=== PATIENT | female | born 1995 ===

== ENCOUNTER → 2018-09-05 19:48 | Outpatient (REF) | payer OTHER, SELFPAY ==
[2018-09-05 20:19] LABS: Bilirubin Urine UA NEGATIVE (NEGATIVE); Color Urine UA RED; Glucose Urine UA NEGATIVE (Negative); Ketones Urine UA NEGATIVE (NEGATIVE); Leukocyte Esterase Urine UA TRACE (NEGATIVE); Nitrite Urine UA NEGATIVE (Negative); Occult Blood Urine UA 3+ (Negative); Protein Urine UA 1+ (Negative); Urobilinogen Urine UA 0.2 E.U./dL (0.2); pH Urine UA 6.5 (4.5-8.0)
[2018-09-05 20:22] LABS: Appearance Urine UA OTHER
[2018-09-05 20:29] LABS: Add Manual Diff / Slide Review NO; Basophils Percent Auto 0.4 % (0-2); Eosinophils Percent Auto 0.3 % (2-4); Hematocrit 43.7 % (36-46); Hemoglobin 14.8 g/dL (12.0-16.0); Lymphocytes Percent Auto 28.2 % (25-40); Mean Corpuscular HGB Conc 33.8 % (30-36); Mean Corpuscular Volume 85.8 fL (80-100); Monocytes Percent Auto 3.4 % (3-14); Neutrophils Absolute Auto 5600 /uL (1500-7000); Neutrophils Percent Auto 67.7 % (50-75); Platelet Count 203 X10^3/uL (150-400); Red Blood Cell Count 5.09 X10^6/uL (4.0-5.2); Red Cell Distribution Width 13.7 % (11.6-14.8); White Blood Cell Count 8.2 X10^3/uL (4.5-11.0)
[2018-09-05 20:33] LABS: Amorphous Sediment Urine 1+; Bacteria Urine Occasional (0-1); Culture Indicated Urine Specimen Cultured; RBC Urine >100/HPF (0-5/HPF); Squamous Epithelial Cell Urine 1-5 /HPF; WBC Urine 5-10/HPF (0-5/HPF)
[2018-09-05 20:38] LABS: Iron 102 ug/dL (37-170)
[2018-09-05 20:47] LABS: Total Iron Binding Capacity 353 ug/dL (265-497)
[2018-09-05 20:50] LABS: Hemoglobin A1C% w Est Avg Glu 5.1 % (4.0-6.0)
[2018-09-05 20:57] LABS: HCG Quantitative /Beta subunit < 2.39 mIU/mL
[2018-09-05 21:10] LABS: Thyroid Stimulating Hormone 1.18 uIU/mL (0.47-4.68)
[2018-09-05 21:15] LABS: Ferritin 60.5 ng/mL (6.27-137)
[2018-09-05 21:41] LABS: Urine N gonorrhoeae NOT DETECTED
[2018-09-05 21:47] LABS: Urine Chlamydia NOT DETECTED
[2018-09-09 20:17] LABS: Estradiol 47 pg/mL
[2018-09-09 20:29] LABS: RPR Screen Nonreactive (Nonreactive)
[2018-09-09 21:02] LABS: Progesterone 0.6 ng/mL
== END ==
LOC: LAB 19:48
PROVIDERS: Visit Provider Nurse Practitioner Acute Care
DX: N83.209 Unspecified ovarian cyst, unspecified side (principal); N80.9 Endometriosis, unspecified; N72 Inflammatory disease of cervix uteri; N89.8 Other specified noninflammatory disorders of vagina; N93.8 Other specified abnormal uterine and vaginal bleeding
CPT/HCPCS: 81001; 82670; 82728; 83036; 83540; 83550; 84144; 84443; 84702; 85025; 86592; 86702; 86703; 86803; 87077; 87086; 87186; 87491; 87591